=== PATIENT | female | born 1985 | race Two or more races ===

== ENCOUNTER 2023-10-03 12:50 | Inpatient (IN) | payer OTHER ==
[2023-10-03] MEDS ORDERED: Sodium Chloride 0.9% 10 ML Syringe FLUSH PRN (14:05)
[2023-10-03] MEDS ORDERED: Oxytocin/Lactated Ringers 30 UNIT/500 ML BAG IV SCH ×2 (14:15)
[2023-10-03] MEDS: Lactated Ringers 1,000 ML IV SCH (14:29)
[2023-10-03 14:31] LABS: BASOPHILS PERCENT AUTO 0.3 % (0.0-1.0); EOSINOPHILS ABSOLUTE AUTO 0.1 K/mm3 (0.0-0.4); EOSINOPHILS PERCENT AUTO 0.6 % (0.0-6.0); HEMATOCRIT 35.5 % (37.0-47.0); HEMOGLOBIN 11.7 gm/dl (12.0-16.0); IMMATURE GRAN ABSOLUTE AUTO 0.04 K/mm3 (0.00-0.05); IMMATURE GRAN PERCENT AUTO 0.5 % (0.0-0.4); LYMPHOCYTES ABSOLUTE AUTO 1.4 K/mm3 (1.0-4.8); LYMPHOCYTES PERCENT AUTO 18.3 % (24.0-44.0); MEAN CORPUSCULAR HEMOGLOBIN 24.9 pg (28.0-32.0); MEAN CORPUSCULAR VOLUME 75.5 fl (83.0-99.0); MEAN PLATELET VOLUME 11.7 fl (9.4-12.3); MONOCYTES ABSOLUTE AUTO 0.6 K/mm3 (0.0-0.8); MONOCYTES PERCENT AUTO 7.4 % (0.0-8.0); NEUTROPHILS ABSOLUTE AUTO 5.7 K/mm3 (1.8-7.7); NEUTROPHILS PERCENT AUTO 72.9 % (41.0-71.0); PLATELET COUNT,PLT 212 K/mm3 (150-400); WHITE BLOOD CELL COUNT,WBC 7.87 K/mm3 (3.9-11.3)
[2023-10-03] MEDS: Citric Acid/Sodium Citrate Solution 30 ML Cup PO ONE (14:39)
[2023-10-03] MEDS: Metoclopramide 10 MG/2 ML SDV IVPUSH ONE (14:39)
[2023-10-03] MEDS ORDERED: Ondansetron 4 MG/2 ML SDV ONE (15:22)
[2023-10-03] MEDS ORDERED: ceFAZolin 2 GM Vial ONE (15:44)
[2023-10-03] MEDS ORDERED: Phenylephrine 1% 10 MG/ML SDV ONE (15:52)
[2023-10-03] MEDS ORDERED: Oxytocin/Lactated Ringers 30 UNIT/500 ML BAG IV ONE (16:00)
[2023-10-03] MEDS ORDERED: diphenhydrAMINE 50 MG/ML SDV IVPUSH PRN ×2 (16:41→16:46)
[2023-10-03] MEDS ORDERED: Meperidine 50 MG/ML Vial IVPUSH PRN (16:41)
[2023-10-03] MEDS ORDERED: Ondansetron 4 MG/2 ML SDV IVPUSH PRN (16:41)
[2023-10-03] MEDS ORDERED: fentaNYL 100 MCG/2 ML SDV IVPUSH PRN (16:41)
[2023-10-03] MEDS ORDERED: ePHEDrine 50 MG/ML SDV IVPUSH PRN (16:46)
[2023-10-03] MEDS ORDERED: oxyCODONE 5 MG Tab PO PRN (16:46)
[2023-10-03] MEDS ORDERED: Morphine 2 MG/ML SYRINGE IVPUSH PRN (16:46)
[2023-10-03] MEDS ORDERED: Naloxone 0.4 MG/ML SDV IVPUSH PRN (16:46)
[2023-10-03] MEDS: Docusate Sodium 100 MG Cap PO SCH (17:52)
[2023-10-03] MEDS: Acetaminophen 325 MG Tab PO SCH (17:52)
[2023-10-03] MEDS: Ketorolac 30 MG/ML SDV IVPUSH ONE (17:52)
[2023-10-03] MEDS: ceFAZolin 2 GM in Sodium Chloride 0.9% 50 ML IV ONE (17:54)
[2023-10-03] MEDS: Dextrose 5%-Lactated Ringers 1,000 ML IV SCH (17:54)
[2023-10-03] MEDS ORDERED: Ibuprofen 600 MG Tab PO SCH (18:00)
[2023-10-03] MEDS: Sodium Chloride 0.9% 10 ML Syringe FLUSH SCH (21:04)
[2023-10-03] MEDS: Ibuprofen 600 MG Tab PO SCH (23:39)
[2023-10-04 07:07] LABS: HEMOGLOBIN 10.1 gm/dl (12.0-16.0); MEAN CORPUSCULAR VOLUME 76.5 fl (83.0-99.0); RED BLOOD CELL COUNT 4.05 M/mm3 (4.10-5.30); WHITE BLOOD CELL COUNT,WBC 10.07 K/mm3 (3.9-11.3)
[2023-10-04 07:08] LABS: LYMPHOCYTES PERCENT AUTO 16.7 % (24.0-44.0); MEAN CORPUSCULAR HEMOGLOBIN 24.9 pg (28.0-32.0); MEAN CORPUSCULAR HGB CONC 32.6 g/dl (32.0-36.0); MEAN PLATELET VOLUME 12.3 fl (9.4-12.3); MONOCYTES PERCENT AUTO 6.8 % (0.0-8.0); NEUTROPHILS PERCENT AUTO 75.4 % (41.0-71.0); PLATELET COUNT,PLT 187 K/mm3 (150-400)
[2023-10-04 07:09] LABS: BASOPHILS PERCENT AUTO 0.2 % (0.0-1.0); EOSINOPHILS ABSOLUTE AUTO 0.1 K/mm3 (0.0-0.4); EOSINOPHILS PERCENT AUTO 0.5 % (0.0-6.0); IMMATURE GRAN ABSOLUTE AUTO 0.04 K/mm3 (0.00-0.05); IMMATURE GRAN PERCENT AUTO 0.4 % (0.0-0.4); LYMPHOCYTES ABSOLUTE AUTO 1.7 K/mm3 (1.0-4.8); MONOCYTES ABSOLUTE AUTO 0.7 K/mm3 (0.0-0.8); NEUTROPHILS ABSOLUTE AUTO 7.6 K/mm3 (1.8-7.7)
[2023-10-04] MEDS: Prenatal Multivitamin with Calcium/Folic Acid/Iron Tab PO SCH (12:32)
== END 2023-10-05 10:20 | disposition home or self-care (01) | DRG 788 ==
LOC: JD.OB 12:50
PROVIDERS: ADMIT Obstetrics & Gynecology; ATTEND Obstetrics & Gynecology
PROC: 10D00Z1 Extraction of Products of Conception, Low, Open Approach (ICD-10-PCS; principal; 2023-10-03 15:30)
DX: O34.211 Maternal care for low transverse scar from previous cesarean delivery (principal); O99.214 Obesity complicating childbirth; E66.01 Morbid (severe) obesity due to excess calories; Z37.0 Single live birth; Z3A.39 39 weeks gestation of pregnancy
CPT/HCPCS: 36415; 59025; 85025; 86592; 86850; 86900; 86901; A9270-GY; J0690; J1885; J2371; J2405; J2765; J3490; J7120; J7121; J7999